=== PATIENT | male | born 1980 | race Caucasian/White ===

== ENCOUNTER 2019-07-28 20:25 | Emergency (ER) | payer BC ==
[2019-07-28] MEDS ORDERED: LORazepam 2 MG/ML SDV IVPUSH ONE (20:35)
--- NOTE | 2019-07-28 20:38 | EDM.PDOC ---
ED HPI GENERAL MEDICAL PROBLEM - General Chief Complaint: Neurological Problem Stated Complaint: [facility] Time Seen by Provider: 07/28/19 20:33 Source of Information: Reports: Patient, EMS History Limitations: Reports: Other ( patient has no recollection of what has happened to him. ) - History of Present Illness INITIAL COMMENTS - FREE TEXT/NARRATIVE: 38-year-old male presents to the ED per [facility] after suffering a reported seizure at [facility]. Patient states she last thing he remembers he was sitting on a couch with other people and when he woke up or came around the endoscope was there loading him on a gurney. Is no recollection of what has happened to him. He reports no previous seizure disorder. Patient has a history of Asperger's syndrome. Patient is on Sinequan daily. He is on Adderall daily and he is also on Prozac daily. All 3 medications can lower his seizure threshold. He doesn't drink any alcohol at all as he was told he could not with the medication that he is on. The concern at present as he is due for his dose of Prozac a couple of hours ago. Was therefore allowed to take his medication in the ED. He has been on this medication for many years. Denies any new medications. States he didn't sleep that well last night but by history stepped 5 hours. He was in a motel room and states that that was not recoverable. She's been eating and drinking normally the last few days. At present he is slightly nauseated but has no significant headache or any pain any body parts. Is reported that he was laid down on the floor by other people in the room and did not get hurt or fall. He denies biting his tongue or losing control of his bowel or bladder. Paramedics were summoned almost immediately and arrived within 5 minutes. They found him postictal state. Lot of questions about how long the seizure may have lasted. Appears that he was may be tonic- clonic activity for 30 seconds but was unresponsive for 5-10 minutes before he started to come around and was quite postictal upon paramedics arrival. Upon arrival in the ED the patient is alert oriented able to answer questions and speaking normally without any dysarthria. He obeys all commands. Onset: Today Onset Date: 07/28/19 Onset Time: 19:50 Duration: Minutes: Location: Reports: Generalized Quality: Reports: Other (Tonic-clonic seizure while seated on the couch with many other people at a home.) Severity: Moderate Improves with: Reports: Other Worsens with: Reports: None (Improves spontaneously.) Context: Reports: Other (History suggest tonic-clonic seizure of new onset patient has no history of seizure disorder.). Denies: Activity, Exercise, Lifting, Sick Contact, Trauma Associated Symptoms: Reports: Confusion, Malaise, Nausea/Vomiting, Weakness. Denies: Chest Pain, Cough (Confused about what is happening to him.), cough w sputum, Diaphoresis, Fever/Chills, Headaches, Loss of Appetite, Rash, Seizure ( Nausea without vomiting), Shortness of Breath, Syncope Treatments TIN WORKER: Reports: Other (see below) (Paramedics not give him any medication.) - Related Data Allergies Allergy/AdvReac Type Severity Reaction Status Date / Time sulfamethoxazole Allergy Cannot Verified 07/28/19 20:35 [From Bactrim] Remember trimethoprim [From Bactrim] Allergy Cannot Verified 07/28/19 20:35 Remember Home Meds: Home Meds Acetaminophen/Caffeine [Excedrin Tension Headache Cplt] 1 each PO DAILY [History] Dextroamphetamine/Amphetamine [Adderall 5 mg Tablet] 10 mg PO DAILY 07/28/19 [ History] Doxepin [SINEquan] 0 mg PO DAILY 07/28/19 [History] FLUoxetine HCl [Prozac] 20 mg PO DAILY 07/28/19 [History] Temazepam [Restoril] 30 mg PO DAILY 07/28/19 [History] levETIRAcetam [Keppra] 500 mg PO BID #30 tab 07/28/19 [Rx] Past Medical History Psychiatric History: Reports: ADHD, Antisocial Behaviors, Depression, Other ( See Below) (Asperger's syndrome.) Social & Family History - Living Situation & Occupation Living situation: Reports: Single Occupation: Unemployed ED ROS GENERAL - Review of Systems Review Of Systems: See Below Constitutional: Reports: Malaise, Weakness, Fatigue. Denies: Fever, Chills, Decreased Appetite, Weight Loss HEENT: Reports: No Symptoms Respiratory: Reports: No Symptoms Cardiovascular: Reports: No Symptoms Endocrine: Reports: No Symptoms GI/Abdominal: Reports: Nausea (Since seizure.) Musculoskeletal: Reports: No Symptoms, Other (Denies any pain in his joints or muscles.) Skin: Reports: No Symptoms Neurological: Reports: Confusion, Seizure (Street is that of tonic-clonic seizure). Denies: Dizziness (Confusion about what has happened to him. He has no recollection of what is happened to him of course from grand mal convulsion.) , Syncope, Tingling, Tremors, Trouble Speaking, Difficulty Walking, Weakness, Change in Speech Psychiatric: Reports: Anxiety Hematologic/Lymphatic: Reports: No Symptoms (Mildly anxious.) Immunologic: Reports: No Symptoms - Physical Exam Exam: See Below Exam Limited By: No Limitations General Appearance: Alert, WD/WN, Anxious, Mild Distress, Other (Unsigned show he is afebrile with temperature 36.6. Pulse is 93 and sinus respiratory 16 BP slightly elevated 1 6379. O2 sats are 99% on room air.) Eye Exam: Bilateral Eye: Normal Inspection, PERRL Ears: Normal TMs Throat/Mouth: Normal Inspection, Normal Lips, Normal Oropharynx. No: Evidence of Tongue Biting Head Exam: Atraumatic, Normocephalic Neck: Normal Inspection, Supple, Non-Tender, Full Range of Motion. No: Lymphadenopathy (L), Lymphadenopathy (R) Respiratory/Chest: No Respiratory Distress, Lungs Clear, Normal Breath Sounds, No Accessory Muscle Use, Chest Non-Tender, Other Cardiovascular: Normal Peripheral Pulses (No tenderness elicited on compression of his ribs or sternum.), Regular Rate, Rhythm, No Edema, No Gallop, No Murmur GI/Abdominal: Normal Bowel Sounds, Soft, Non-Tender, No Organomegaly, No Abnormal Bruit, No Mass, Pelvis Stable Neuro Exam (Abbreviated): Alert, Oriented, CN II-XII Intact, Normal Cognition, No Motor/Sensory Deficits DTR: 3+: Bicep (R) (3+ at brachioradialis bilaterally as well.), Bicep (L), Patella (R), Patella (L), Achilles (R), Achilles (L) Back Exam: Normal Inspection, Full Range of Motion. No: CVA Tenderness (L), CVA Tenderness (R) Extremities: Normal Inspection, Normal Range of Motion, Non-Tender Psychiatric: Normal Affect, Anxious Skin Exam: Warm, Dry, Intact, Other (Mild acneiform type rash face) EKG INTERPRETATION EKG Date: 07/28/19 Time: 20:45 Rhythm: NSR Rate (Beats/Min): 86 Irving: Normal P-Wave: Present QRS: Other (Nonspecific intraventricular conduction delay.) QT: Prolonged (Mildly prolonged) EKG Interpretation Comments: Borderline ECG. Course - Vital Signs Last Recorded V/S: Last Vital Signs Temp 36.6 C 07/28/19 20:28 Pulse 93 07/28/19 20:28 Resp 16 07/28/19 20:28 BP 163/79 H 07/28/19 20:28 Pulse Ox 99 07/28/19 20:28 - Orders/Labs/Meds Orders: Active Orders 24 hr Category Date Time Status Blood Glucose Check, Bedside [RC] ONETIME Care 07/28/19 20:34 Active EKG Documentation Completion [RC] STAT Care 07/28/19 20:34 Active Chest 1V Frontal [CR] Stat Exams 07/28/19 20:34 Taken Head wo Cont [CT] Stat Exams 07/28/19 20:35 Taken Dextrose 5%-0.9% NaCl [Dextrose 5%-Normal Saline] 1,000 Med 07/28/19 20:45 Active ml IV ASDIRECTED levETIRAcetam [Keppra] Med 07/28/19 22:44 Once 500 mg PO NOW ONE Medication Orders Dextrose/Sodium Chloride (Dextrose 5%-Normal Saline) 1,000 mls @ 500 mls/hr IV ASDIRECTED ASIA Last Admin: 07/28/19 21:02 Dose: 500 mls/hr Labs: Laboratory Tests 07/28/19 07/28/19 07/28/19 Range/Units 21:00 21:00 21:00 WBC 6.33 (4.23-9.07) K/mm3 RBC 4.76 (4.63-6.08) M/mm3 Hgb 14.1 (13.7-17.5) gm/L Hct 41.6 (40.1-51.0) % MCV 87.4 (79.0-92.2) fl MCH 29.6 (25.7-32.2) pg MCHC 33.9 (32.2-35.5) g/dl RDW Std Deviation 40.8 (35.1-43.9) fL Plt Count 234 (163-337) K/mm3 MPV 9.1 L (9.4-12.3) fl Neut % (Auto) 52.5 (34.0-67.9) % Lymph % (Auto) 37.8 (21.8-53.1) % Banks % (Auto) 8.1 (5.3-12.2) % Eos % (Auto) 1.1 (0.8-7.0) Baso % (Auto) 0.5 (0.1-1.2) % Neut # (Auto) 3.33 (1.78-5.38) K/mm3 Lymph # (Auto) 2.39 (1.32-3.57) K/mm3 Banks # (Auto) 0.51 (0.30-0.82) K/mm3 Eos # (Auto) 0.07 (0.04-0.54) K/mm3 Baso # (Auto) 0.03 (0.01-0.08) K/mm3 ESR (0-15) mm/hr Sodium (136-145) mEq/L Potassium (3.5-5.1) mEq/L Chloride (98-107) mEq/L Carbon Dioxide (21-32) mEq/L Anion Gap (5-15) BUN (7-18) mg/dL Creatinine (0.7-1.3) mg/dL Est Cr Clr Drug Dosing mL/min Estimated GFR (MDRD) (>60) mL/min BUN/Creatinine Ratio (14-18) Glucose (74-106) mg/dL Lactic Acid 1.9 (0.4-2.0) mmol/L Calcium (8.5-10.1) mg/dL Magnesium 2.0 (1.8-2.4) mg/dl Total Bilirubin (0.2-1.0) mg/dL AST (15-37) U/L ALT (16-63) U/L Alkaline Phosphatase (46-116) U/L Creatine Kinase 85 (39-308) U/L C-Reactive Protein < 0.2 (<1.0) mg/dL Total Protein (6.4-8.2) g/dl Albumin (3.4-5.0) g/dl Globulin gm/dL Albumin/Globulin Ratio (1-2) TSH 3rd Generation (0.358-3.74) uIU/mL 09/11/0307/28/19 07/28/19 Range/Units 21:00 21:00 21:00 WBC (4.23-9.07) K/mm3 RBC (4.63-6.08) M/mm3 Hgb (13.7-17.5) gm/L Hct (40.1-51.0) % MCV (79.0-92.2) fl MCH (25.7-32.2) pg MCHC (32.2-35.5) g/dl RDW Std Deviation (35.1-43.9) fL Plt Count (163-337) K/mm3 MPV (9.4-12.3) fl Neut % (Auto) (34.0-67.9) % Lymph % (Auto) (21.8-53.1) % Banks % (Auto) (5.3-12.2) % Eos % (Auto) (0.8-7.0) Baso % (Auto) (0.1-1.2) % Neut # (Auto) (1.78-5.38) K/mm3 Lymph # (Auto) (1.32-3.57) K/mm3 Banks # (Auto) (0.30-0.82) K/mm3 Eos # (Auto) (0.04-0.54) K/mm3 Baso # (Auto) (0.01-0.08) K/mm3 ESR 12 (0-15) mm/hr Sodium 139 (136-145) mEq/L Potassium 3.6 (3.5-5.1) mEq/L Chloride 105 (98-107) mEq/L Carbon Dioxide 22 (21-32) mEq/L Anion Gap 15.6 H (5-15) BUN 15 (7-18) mg/dL Creatinine 0.9 (0.7-1.3) mg/dL Est Cr Clr Drug Dosing 120.95 mL/min Estimated GFR (MDRD) > 60 (>60) mL/min BUN/Creatinine Ratio 16.7 (14-18) Glucose 132 H (74-106) mg/dL Lactic Acid (0.4-2.0) mmol/L Calcium 9.3 (8.5-10.1) mg/dL Magnesium (1.8-2.4) mg/dl Total Bilirubin 0.5 (0.2-1.0) mg/dL AST 22 (15-37) U/L ALT 35 (16-63) U/L Alkaline Phosphatase 98 (46-116) U/L Creatine Kinase (39-308) U/L C-Reactive Protein (<1.0) mg/dL Total Protein 8.0 (6.4-8.2) g/dl Albumin 4.2 (3.4-5.0) g/dl Globulin 3.8 gm/dL Albumin/Globulin Ratio 1.1 (1-2) TSH 3rd Generation 2.836 (0.358-3.74) uIU/mL Meds: Medications Generic Name Dose Route Start Last Admin Trade Name Freq PRN Reason Stop Dose Admin Dextrose/Sodium Chloride 1,000 mls @ 500 mls/hr 07/28/19 20:45 07/28/19 21:02 Dextrose 5%-Normal Saline IV 500 mls/hr ASDIRECTED ASIA Administration Discontinued Medications Generic Name Dose Route Start Last Admin Trade Name Freq PRN Reason Stop Dose Admin Lorazepam 1 mg 07/28/19 20:35 07/28/19 21:03 Ativan IVPUSH 07/28/19 20:36 1 mg ONETIME ONE Administration Ondansetron HCl 4 mg 07/28/19 20:39 07/28/19 21:03 Zofran IVPUSH 07/28/19 20:40 4 mg ONETIME ONE Administration - Radiology Interpretation Free Text/Narrative:: 38-year-old male presents to the ED per [facility] after suffering a witnessed grand mal convulsion at a local home.. A service. Couch and apparently went limp and then developed tonic-clonic activity. He was able to the floor by other members at the home. This felt he probably had tonic- clonic activity for 30-60 seconds but remained postictal for 5-10 minutes. But since the paramedics got there the patient was starting to come around. He was only slightly postictal upon arrival in the ED. The been about a half an hour since the call went out. Patient has no history of seizures in the past. He does have a history of Asperger's syndrome and is on Adderall, doxepin, and Prozac daily, all of these medications can lower his seizure threshold. His not drink any alcohol. Does not use any street drugs. He is neuro exam at this time is normal. He has hyperreflexia which is symmetrical throughout. Plan he will have CT head. He will be given Ativan 1 mg IV and Zofran 4 mg IV for nausea relief. Labs to be performed including lactic acid and CPK. - Re-Assessments/Exams Free Text/Narrative Re-Assessment/Exam: 07/28/19 21:08 chest x-ray done per portable technique suggest mild cardiomegaly and slightly tortuous thoracic aorta. Visualized portion of the lungs suggest mild diffuse pulmonary congestion however my sense is that the film is magnified. 07/28/19 21:40 CT of the head is within normal limits. No skull fractures no midline shift no intracranial bleeding. Visualized sinuses are all clear. He is known to have low lying cerebellar tonsils with no evidence of acute infarct or hemorrhage. 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 07/28/19 21:42 Labs reveal a normal white count at 6.33. Auto differential shows 52% neutrophils. Hemoglobin is 14.1. Platelet counts 234,000. Lactic acid is 1.9. Magnesium 2.0 CPK is 85 C-reactive protein is less than 0.2. 07/28/19 22:21 TSH is normal at 2.836. C-reactive protein is less than 0.2. 07/28/19 22:33 Chemisty is back and is all normal including liver function. It is my opinion he is at risk for seizure re occurrence due to current medications. No other reason identified to have provoked a seizure. I am going to place him on Keppra 500mg bid for prevention of further sizures until he can get in to see his psychiatrist to review his medication needs and should have neuorology evaluation as well. Departure - Departure Time of Disposition: 22:38 Disposition: Home, Self-Care 01 Condition: Fair Clinical Impression: New onset seizure without head trauma - Discharge Information *PRESCRIPTION DRUG MONITORING PROGRAM REVIEWED*: Not Applicable *COPY OF PRESCRIPTION DRUG MONITORING REPORT IN PATIENT PHYLLIS: Not Applicable Prescriptions: levETIRAcetam [Keppra] 500 mg PO BID #30 tab Referrals: PCP,Unknown [Ordering Only Provider] - Forms: ED Department Discharge Additional Instructions: Evaluation the emergency room today in regards regards to new-onset grand mal convulsion while seated at the local home. Witnessed by several. Room and paramedics identify the you that you were quite postictal. The postictal state refers to lethargy and confusion after having a seizure that usually last 20-40 minutes depending along the seizure lasted. Neuro exam was normal. Is for you to have suffered a seizure ie no triggers identified. CT scan of the brain is essentially normal. All of the lab work done in the ED was normal as well. Suggest use of Keppra 500 mg tablet bedtime and morning until you have follow-up with your psychiatrist and preferably a neural logical evaluation as well. Since she had a seizure and the current medications that you are on lower your seizure threshold changes may have to be made to medications but if they deem to be essential then medication such as an antiseizure medication may need to be continued as well to prevent further seizure activity from occurring. Decision made to place you on Keppra 500 mg twice daily to prevent seizure recurrence until this can be sorted out with your physicians back in [place]. - My Orders Last 24 Hours: My Active Orders 07/28/19 20:34 Blood Glucose Check, Bedside [RC] ONETIME EKG Documentation Completion [RC] STAT Chest 1V Frontal [CR] Stat 07/28/19 20:35 Head wo Cont [CT] Stat 07/28/19 20:45 Dextrose 5%-0.9% NaCl [Dextrose 5%-Normal Saline] 1,000 ml IV ASDIRECTED 07/28/19 22:44 levETIRAcetam [Keppra] 500 mg PO NOW ONE - Assessment/Plan Last 24 Hours: My Active Orders 07/28/19 20:34 Blood Glucose Check, Bedside [RC] ONETIME EKG Documentation Completion [RC] STAT Chest 1V Frontal [CR] Stat 07/28/19 20:35 Head wo Cont [CT] Stat 07/28/19 20:45 Dextrose 5%-0.9% NaCl [Dextrose 5%-Normal Saline] 1,000 ml IV ASDIRECTED 07/28/19 22:44 levETIRAcetam [Keppra] 500 mg PO NOW ONE
[2019-07-28] MEDS ORDERED: Ondansetron 4 MG/2 ML SDV IVPUSH ONE (20:39)
[2019-07-28] MEDS ORDERED: Dextrose 5%-0.9% NaCl 1,000 ML IV SCH (20:45)
[2019-07-28] MEDS ORDERED: levETIRAcetam Soln 500 MG/5 ML Cup PO ONE (22:44)
--- NOTE | 2019-08-01 08:50 | CT ---
Head CT Technique: Multiple axial sections through the brain were obtained. Intravenous contrast was not utilized. Comparison: No prior intracranial imaging. Findings: Ventricles along with basal cisterns and sulci over the convexities are within normal limits for the patient's age. Slight descent of the cerebellar tonsils below the foramen magnum is noted which is compatible with mild Arnold Chiari I variant. No abnormal parenchymal densities are seen. No evidence of intracranial hemorrhage. No midline shift or mass effect is seen. Bone window settings were reviewed which showed the visualized paranasal sinuses and mastoid sinuses to appear clear. No acute calvarial abnormality is appreciated. Impression: 1. Arnold-Chiari I variant. 2. No acute intracranial abnormality is appreciated. Diagnostic code #2 I agree with preliminary report from [facility], finalized on 07/28/19, 10:44 PM Central Time
--- NOTE | 2019-08-01 08:50 | CR ---
Chest: Portable view of the chest was obtained. Comparison: No previous chest x-ray. Heart size and mediastinum are normal. Lungs are clear. Bony structures are grossly intact. Impression: 1. Nothing acute is appreciated on portable chest x-ray. Diagnostic code #1
== END 2019-07-28 23:02 | disposition home or self-care (01) ==
LOC: JD.ED 20:25
DX: R56.9 Unspecified convulsions (principal); F32.9 Major depressive disorder, single episode, unspecified; F90.9 Attention-deficit hyperactivity disorder, unspecified type; Z88.2 Allergy status to sulfonamides; Z88.1 Allergy status to other antibiotic agents; Z79.899 Other long term (current) drug therapy
CPT/HCPCS: 36415; 70450; 71045; 80053; 82550; 82962; 83605; 83735; 84443; 85025; 85652; 86140; 93005; 96361; 96374; 96375; 99285; A9270; J2060; J2405; J7042